=== PATIENT | female | born 1975 | race Caucasian/White ===

== ENCOUNTER 2018-09-21 19:55 | Emergency (ER) | payer OTHER ==
[2018-09-21] MEDS: METHOCARBAMOL 750 MG TAB PO (20:58)
[2018-09-21] MEDS: DEXAMETHASONE 10 MG/ML 1 ML INJ IM (21:01)
[2018-09-21] MEDS: KETOROLAC 30 MG INJ IM ×2 (21:07→21:58)
== END 2018-09-22 02:23 | disposition left against medical advice (07) ==
LOC: FTE 09-22 02:23
DX: M54.5 Low back pain (principal); E03.9 Hypothyroidism, unspecified
CPT/HCPCS: 81025; 96372; 99284-25

== ENCOUNTER 2018-09-24 12:32 | Emergency (ER) | payer OTHER | END 2018-09-24 15:01 | disposition home or self-care (01) | LOC: FTE 12:32 | DX: M54.5 Low back pain (principal) | CPT/HCPCS: 72100; 99283-25 ==